=== PATIENT | female | born 1960 | race Two or more races ===

== ENCOUNTER → 2017-03-10 | Outpatient (CLI) | payer OTHER | LOC: BRMIMAGING 13:17 | DX: Z12.31 Encounter for screening mammogram for malignant neoplasm of breast (principal); Z80.3 Family history of malignant neoplasm of breast | CPT/HCPCS: G0202 ==

== ENCOUNTER → 2018-03-13 | Outpatient (CLI) | payer OTHER | LOC: BRMIMAGING 10:45 | DX: Z12.31 Encounter for screening mammogram for malignant neoplasm of breast (principal); Z80.3 Family history of malignant neoplasm of breast; R92.8 Other abnormal and inconclusive findings on diagnostic imaging of breast ==

== ENCOUNTER → 2018-03-29 | Outpatient (CLI) | payer OTHER | LOC: BRMIMAGING 08:52 | DX: R92.8 Other abnormal and inconclusive findings on diagnostic imaging of breast (principal) | CPT/HCPCS: 76641-PO ==